=== PATIENT | male | born 1980 | race Caucasian/White ===

== ENCOUNTER 2022-10-03 15:07 | Emergency (ER) | payer OTHER ==
[2022-10-03 15:20] VITALS: TEMP 98.1
[2022-10-03] MEDS ORDERED: ACETAMINOPHEN TAB 325 MG TAB PO STA (15:36)
--- NOTE | 2022-10-03 15:43 | ED ---
General Adult HPI - General Chief complaint: Skin/Abscess/Foreign Body Stated complaint: R big toe infection Time Seen by Provider: 10/03/22 15:26 Source: patient, RN notes reviewed, old records reviewed Mode of arrival: ambulatory Limitations: no limitations - History of Present Illness Initial comments: This is a nontoxic-appearing 42-year-old male who presents with right great toe pain today. Patient states that he underwent debriding of a callus to the plantar surface of the great toe with a statement services representative in [place] on 09/16/22. He was admitted to the hospital at [facility] and had IV antibiotics after debridement surgery on September 16. A bone biopsy was performed and negative. He was discharged home and placed on 10 days of two different oral antibiotics which he finished 3 days ago. Patient states that today he developed some pain to the top of the toe along the base of the nail. No drainage. No fevers. Does have a history of diabetes and hypertension. Currently at [facility] for alcohol withdrawal since September 16, states 42 days sober. Denies any IV drug use. -: days(s) Location: right (great toe) Radiation: non-radiation Severity scale (1-10): 7 Quality: constant Associated Symptoms: denies other symptoms - Related Data Home Medications Medication Instructions Recorded Confirmed Acetaminophen [Tylenol Arthritis] 650 mg PO Q4H PRN 10/03/22 10/03/22 Calcium, Magnesium, Zinc, With 1 tab PO TID PRN 10/03/22 10/03/22 Vitamin D3 Chlorpheniramine Maleate 4 mg PO Q4H PRN 10/03/22 10/03/22 [Chlor-Trimeton] Clotrimazole/Betameth Cream 1 applic TOPICAL DAILY 10/03/22 10/03/22 [Lotrisone] Folic Acid 1 mg PO DAILY 10/03/22 10/03/22 Ibuprofen [Motrin Ib] 600 mg PO Q6H PRN 10/03/22 10/03/22 Lactulose [Constulose] 20 gm PO Q8H PRN 10/03/22 10/03/22 Magnesium Oxide [Mag-Ox] 400 mg PO BID 10/03/22 10/03/22 Multivitamins, Thera [Multivitamin 1 tab PO DAILY 10/03/22 10/03/22 (formulary)] Pantoprazole [Protonix] 40 mg PO DAILY 10/03/22 10/03/22 QUEtiapine XR [SEROquel XR] 100 mg PO DAILY 10/03/22 10/03/22 QUEtiapine [SEROquel] 50 mg PO HS 10/03/22 10/03/22 Sertraline [Zoloft] 150 mg PO DAILY 10/03/22 10/03/22 Thiamine [Vitamin B-1] 100 mg PO DAILY 10/03/22 10/03/22 amLODIPine [Norvasc] 5 mg PO DAILY PRN 10/03/22 10/03/22 cloNIDine HCL [Catapres] 0.1 mg PO BID 10/03/22 10/03/22 lisinopriL 40 mg PO DAILY PRN 10/03/22 10/03/22 metFORMIN HCL 1,000 mg PO BID 10/03/22 10/03/22 ondansetron HCL [Zofran] 8 mg PO Q6H PRN 10/03/22 10/03/22 traZODone HCL [Desyrel] 200 mg PO HS 10/03/22 10/03/22 Allergies Allergy/AdvReac Type Severity Reaction Status Date / Time Sulfa (Sulfonamide Allergy Rash/Hives Verified 10/03/22 16:28 Antibiotics) Review of Systems ROS Statement: Those systems with pertinent positive or pertinent negative responses have been documented in the HPI. ROS Other: All systems not noted in ROS Statement are negative. Past Medical History Past Medical History: Diabetes Mellitus, Hypertension Additional Past Medical History / Comment(s): COVID 09/08/22 History of Any Multi-Drug Resistant Organisms: None Reported Past Surgical History: Tonsillectomy Additional Past Surgical History / Comment(s): I&D rt great toe, lt hand Past Psychological History: Anxiety, Depression, Panic Disorder Smoking Status: Never smoker Past Alcohol Use History: Abuse, Daily Past Drug Use History: None Reported General Exam Limitations: no limitations General appearance: alert, in no apparent distress Head exam: Present: atraumatic Eye exam: Present: normal appearance. Absent: scleral icterus, conjunctival injection, periorbital swelling Respiratory exam: Absent: respiratory distress, accessory muscle use Cardiovascular Exam: Present: regular rate Right Foot/Toe exam: Present: normal inspection, full ROM, tenderness (No evidence of paronychia), abrasion (dried scale plantar surface of great toe, no erythema or exudate). Absent: swelling, laceration, ecchymosis, deformity, erythema, calcaneal tenderness, tenderness at base of 5th metatarsal, nail avulsion, subungual hematoma Neurovascular tendon exam: Present: no vascular compromise. Absent: abnormal cap refill, extremity cold to touch, foot drop Neurological exam: Present: alert, oriented X3 Psychiatric exam: Present: normal affect, normal mood Skin exam: Present: warm, dry, normal color. Absent: cyanosis, diaphoretic, petechiae, pallor Course Vital Signs 10/03/22 10/03/22 15:13 16:50 Temperature 98.1 F Pulse Rate 60 63 Respiratory 20 16 Rate Blood Pressure 128/79 143/91 O2 Sat by Pulse 99 98 Oximetry Medical Decision Making - Medical Decision Making I attempted to get records from [facility] is unsuccessful. Repeat x-ray of the great toe to rule out osteomyelitis was performed. I see no evidence of osteomyelitis or acute fracture. Radiologist impression no destructive changes seen to suggest osteomyelitis. Patient states finished 2 different antibiotics but does not remember the name of them 3 days ago. Denies any fevers. Excision site is dry with no surrounding erythema or exudate. There is slight erythema at the base of the nail no concern for paronychia. Bacitratin dressing was applied and he was directed to use bid soaks and bacitrain bid f/u podiatry. Patient is agreeable to this plan of care. Case discusssed with DR. Sanchez Was pt. sent in by a medical professional or institution (, PA, CONTRACT NEGOTIATOR, urgent care, hospital, or custodial...) When possible be specific @ -[facility] Did you speak to anyone other than the patient for history (EMS, parent, family, police, friend...)? What history was obtained from this source @ -No Did you review nursing and triage notes (agree or disagree)? Why? @ -I reviewed and agree with nursing and triage notes Were old charts reviewed (outside hosp., previous admission, EMS record, old EKG, old radiological studies, urgent care reports/EKG's, custodial records)? Report findings @ -No old charts were reviewed Differential Diagnosis (chest pain, altered mental status, abdominal pain women, abdominal pain men, vaginal bleeding, weakness, fever, dyspnea, syncope, headache, dizziness, GI bleed, back pain, seizure, CVA, palpatations, mental health, musculoskeletal)? @ -Cellulitis, abscess, osteomyelitis, paronychia EKG interpreted by me (3pts min.). @ -n/a X-rays interpreted by me (1pt min.). @ -yes as above CT interpreted by me (1pt min.). @ -None done U/S interpreted by me (1pt. min.). @ -None done What testing was considered but not performed or refused? (CT, X-rays, U/S, labs)? Why? @ -None What meds were considered but not given or refused? Why? @ -Antibiotics were considered however there is no evidence of cellulitis Did you discuss the management of the patient with other professionals (professionals i.e. , PA, CONTRACT NEGOTIATOR, lab, RT, psych nurse, psychiatric social worker, director of agronomy, teacher, retail loss prevention officer, child welfare caseworker)? Give summary @ -No Was smoking cessation discussed for >3mins.? @ -No Was critical care preformed (if so, how long)? @ -No Were there social determinants of health that impacted care today? How? (Homelessness, low income, unemployed, alcoholism, drug addiction, transportation, low edu. Level, literacy, decrease access to med. care, assisted, rehab)? @ -No Was there de-escalation of care discussed even if they declined (Discuss DNR or withdrawal of care, Hospice)? DNR status @ -No What co-morbidities impacted this encounter? (DM, HTN, Smoking, COPD, CAD, Cancer, CVA, ARF, Chemo, Hep., AIDS, mental health diagnosis, sleep apnea, morbid obesity)? @ -Depression, alcohol abuse, diabetes, hypertension Was patient admitted / discharged? Hospital course, mention meds given and route, prescriptions, significant lab abnormalities, going to OR and other pertinent info. @ -Discharged Undiagnosed new problem with uncertain prognosis? @ -No Drug Therapy requiring intensive monitoring for toxicity (Heparin, Nitro, Insulin, Cardizem)? @ -No Were any procedures done? @ -No Diagnosis/symptom? @ -Toe pain Acute, or Chronic, or Acute on Chronic? @ -Acute Uncomplicated (without systemic symptoms) or Complicated (systemic symptoms)? @ -Uncomplicated Side effects of treatment? @ -No Exacerbation, Progression, or Severe Exacerbation? @ -No Poses a threat to life or bodily function? How? (Chest pain, [place], [place], pneumonia, PE, COPD, DKA, ARF, appy, cholecystitis, CVA, Diverticulitis, Homicidal, Suicidal, threat to staff... and all critical care pts) @ -No Disposition Clinical Impression: Toe pain, right Disposition: HOME SELF-CARE Condition: Good Additional Instructions: Soak toe in warm soapy water 2-3 times a day for 15 -[address] a thin layer of bacitracin or Neosporin to the base of the nail bed and cover with Band-Aid. Do this for the next 2-3 days. Follow-up with your statement services representative next week. Return with any new or concerning symptoms. Is patient prescribed a controlled substance at d/c from ED?: No Referrals: Sam Morrow MD [Primary Care Provider] - 1-2 days Time of Disposition: 16:31
--- NOTE | 2022-10-03 16:06 | XR ---
EXAMINATION TYPE: XR toes RT DATE OF EXAM: 10/03/2022 COMPARISON: NONE HISTORY: Swelling with well-defined TECHNIQUE: Three views are submitted. FINDINGS: The osseous structures are intact. There is no acute fracture or dislocation. Joint spaces are p reserved. No destructive changes seen. There is diffuse soft tissue edema IMPRESSION: 1.. No destructive changes seen to suggest osteomyelitis. Correlate for cellulitis.
[2022-10-03] MEDS ORDERED: BACITRACIN OINT 1 EACH PACKET TOPICAL ONE (16:28)
[2022-10-03 16:51] VITALS: BP 143/91; PULSE 63; RESP 16
== END 2022-10-03 17:15 | disposition home or self-care (01) ==
LOC: EC 15:07
DX: M79.674 Pain in right toe(s) (principal); E11.9 Type 2 diabetes mellitus without complications; I10 Essential (primary) hypertension; F41.9 Anxiety disorder, unspecified; F32.A Depression, unspecified; Z79.84 Long term (current) use of oral hypoglycemic drugs; Z79.899 Other long term (current) drug therapy; Z86.16 Personal history of COVID-19; Z88.2 Allergy status to sulfonamides
CPT/HCPCS: 99283

== ENCOUNTER 2022-10-06 14:03 | Emergency (ER) | payer OTHER ==
--- NOTE | 2022-10-06 14:09 | ED ---
General Adult HPI - General Stated complaint: Rknee injury Time Seen by Provider: 10/06/22 14:08 Source: patient, RN notes reviewed Mode of arrival: ambulatory Limitations: no limitations - History of Present Illness Initial comments: 42-year-old male presents emergency from from [facility] for evaluation for right knee abrasion. Patient states he was walking up steps states that his sandal caught the step causing him to fall he has a small abrasion and states he otherwise has no discomfort. He states he is able to ambulate he states he did not want to come back at [facility] told him he had to come here or he be discharged. Patient denies head injury no loss conscious. Patient is no difficulty walking patient states he does not need any treatment. - Related Data Home Medications Medication Instructions Recorded Confirmed Acetaminophen [Tylenol Arthritis] 650 mg PO Q4H PRN 10/03/22 10/03/22 Calcium, Magnesium, Zinc, With 1 tab PO TID PRN 10/03/22 10/03/22 Vitamin D3 Chlorpheniramine Maleate 4 mg PO Q4H PRN 10/03/22 10/03/22 [Chlor-Trimeton] Clotrimazole/Betameth Cream 1 applic TOPICAL DAILY 10/03/22 10/03/22 [Lotrisone] Folic Acid 1 mg PO DAILY 10/03/22 10/03/22 Ibuprofen [Motrin Ib] 600 mg PO Q6H PRN 10/03/22 10/03/22 Lactulose [Constulose] 20 gm PO Q8H PRN 10/03/22 10/03/22 Magnesium Oxide [Mag-Ox] 400 mg PO BID 10/03/22 10/03/22 Multivitamins, Thera [Multivitamin 1 tab PO DAILY 10/03/22 10/03/22 (formulary)] Pantoprazole [Protonix] 40 mg PO DAILY 10/03/22 10/03/22 QUEtiapine XR [SEROquel XR] 100 mg PO DAILY 10/03/22 10/03/22 QUEtiapine [SEROquel] 50 mg PO HS 10/03/22 10/03/22 Sertraline [Zoloft] 150 mg PO DAILY 10/03/22 10/03/22 Thiamine [Vitamin B-1] 100 mg PO DAILY 10/03/22 10/03/22 amLODIPine [Norvasc] 5 mg PO DAILY PRN 10/03/22 10/03/22 cloNIDine HCL [Catapres] 0.1 mg PO BID 10/03/22 10/03/22 lisinopriL 40 mg PO DAILY PRN 10/03/22 10/03/22 metFORMIN HCL 1,000 mg PO BID 10/03/22 10/03/22 ondansetron HCL [Zofran] 8 mg PO Q6H PRN 10/03/22 10/03/22 traZODone HCL [Desyrel] 200 mg PO HS 10/03/22 10/03/22 Allergies Allergy/AdvReac Type Severity Reaction Status Date / Time Sulfa (Sulfonamide Allergy Rash/Hives Verified 10/03/22 16:28 Antibiotics) Review of Systems ROS Statement: Those systems with pertinent positive or pertinent negative responses have been documented in the HPI. ROS Other: All systems not noted in ROS Statement are negative. Past Medical History Past Medical History: Diabetes Mellitus, Hypertension Additional Past Medical History / Comment(s): COVID 09/08/22 History of Any Multi-Drug Resistant Organisms: None Reported Past Surgical History: Tonsillectomy Additional Past Surgical History / Comment(s): I&D rt great toe, lt hand Past Psychological History: Anxiety, Depression, Panic Disorder Smoking Status: Never smoker Past Alcohol Use History: Abuse, Daily Past Drug Use History: None Reported General Exam Limitations: no limitations General appearance: alert, in no apparent distress Head exam: Present: atraumatic, normocephalic, normal inspection Eye exam: Present: normal appearance, PERRL, EOMI. Absent: scleral icterus, conjunctival injection, periorbital swelling Neck exam: Present: normal inspection, full ROM. Absent: tenderness, meningismus, lymphadenopathy Respiratory exam: Present: normal lung sounds bilaterally. Absent: respiratory distress, wheezes, rales, rhonchi, stridor Cardiovascular Exam: Present: regular rate, normal rhythm, normal heart sounds. Absent: systolic murmur, diastolic murmur, rubs, gallop, clicks Extremities exam: Present: other (Right knee abrasion, full range of motion nontender neurovascular intact) Neurological exam: Present: alert, oriented X3, CN II-XII intact Course Vital Signs 10/06/22 14:11 Temperature 97.4 F L Pulse Rate 64 Respiratory 16 Rate Blood Pressure 105/69 O2 Sat by Pulse 98 Oximetry Medical Decision Making - Medical Decision Making Was pt. sent in by a medical professional or institution (TERRY Rm, PUBLIC WORKS TECHNICIAN, urgent care, hospital, or [facility]...) When possible be specific @ -No Did you speak to anyone other than the patient for history (EMS, parent, family, police, friend...)? What history was obtained from this source @ -No Did you review nursing and triage notes (agree or disagree)? Why? @ -I reviewed and agree with nursing and triage notes Were old charts reviewed (outside hosp., previous admission, EMS record, old EKG, old radiological studies, urgent care reports/EKG's, [facility] records)? Report findings @ -No old charts were reviewed Differential Diagnosis (chest pain, altered mental status, abdominal pain women, abdominal pain men, vaginal bleeding, weakness, fever, dyspnea, syncope, headache, dizziness, GI bleed, back pain, seizure, CVA, palpatations, mental health, musculoskeletal)? @ -Right knee abrasion right knee contusion EKG interpreted by me (3pts min.). @ -None X-rays interpreted by me (1pt min.). @ -None done CT interpreted by me (1pt min.). @ -None done U/S interpreted by me (1pt. min.). @ -None done What testing was considered but not performed or refused? (CT, X-rays, U/S, labs)? Why? @ -Right knee x-ray was offered patient declined What meds were considered but not given or refused? Why? @ -None Did you discuss the management of the patient with other professionals (professionals i.e. TERRY Rm, PUBLIC WORKS TECHNICIAN, lab, RT, psych nurse, social work therapist, antenna specialist, teacher, restoration officer, manager rn case)? Give summary @ -No Was smoking cessation discussed for >3mins.? @ -No Was critical care preformed (if so, how long)? @ -No Were there social determinants of health that impacted care today? How? (Homelessness, low income, unemployed, alcoholism, drug addiction, t ransportation, low edu. Level, literacy, decrease access to med. care, half-way, rehab)? @ -No Was there de-escalation of care discussed even if they declined (Discuss DNR or withdrawal of care, Hospice)? DNR status @ -No What co-morbidities impacted this encounter? (DM, HTN, Smoking, COPD, CAD, Cancer, CVA, ARF, Chemo, Hep., AIDS, mental health diagnosis, sleep apnea, morbid obesity)? @ -None Was patient admitted / discharged? Hospital course, mention meds given and route, prescriptions, significant lab abnormalities, going to OR and other pertinent info. @ -Discharge patient is right knee abrasion patient declined x-ray patient has no other complaints is discharged in stable condition. Undiagnosed new problem with uncertain prognosis? @ -No Drug Therapy requiring intensive monitoring for toxicity (Heparin, Nitro, Insulin, Cardizem)? @ -No Were any procedures done? @ -No Diagnosis/symptom? @ -Right knee abrasion, contusion Acute, or Chronic, or Acute on Chronic? @ -Acute Uncomplicated (without systemic symptoms) or Complicated (systemic symptoms)? @ -Uncomplicated Side effects of treatment? @ -No Exacerbation, Progression, or Severe Exacerbation? @ -No Poses a threat to life or bodily function? How? (Chest pain, [place], [place], pneumonia, PE, COPD, DKA, ARF, appy, cholecystitis, CVA, Diverticulitis, Homicidal, Suicidal, threat to staff... and all critical care pts) @ -No Disposition Clinical Impression: Abrasion, right knee, initial encounter, Contusion of knee, right Disposition: HOME SELF-CARE Condition: Stable Instructions (If sedation given, give patient instructions): Abrasion (ED) Additional Instructions: Please return to the Emergency Department if symptoms worsen or any other concerns. Is patient prescribed a controlled substance at d/c from ED?: No Referrals: Nonstaff,Physician [Primary Care Provider] - 1-2 days Time of Disposition: 14:09
[2022-10-06 14:13] VITALS: BP 105/69; PULSE 64; RESP 16; TEMP 97.4
== END 2022-10-06 14:29 | disposition home or self-care (01) ==
LOC: EC 14:03
DX: S80.01XA Contusion of right knee, initial encounter (principal); E11.9 Type 2 diabetes mellitus without complications; I10 Essential (primary) hypertension; Z79.84 Long term (current) use of oral hypoglycemic drugs; Z79.899 Other long term (current) drug therapy; Z88.2 Allergy status to sulfonamides; F41.9 Anxiety disorder, unspecified; F32.A Depression, unspecified; W23.0XXA Caught, crushed, jammed, or pinched between moving objects, initial encounter; Y93.01 Activity, walking, marching and hiking
CPT/HCPCS: 99283